=== PATIENT | female | born 1980 | race Caucasian/White ===

== ENCOUNTER 2017-03-22 10:06 | Emergency (ER) | payer BC, OTHER ==
[~2017-03-22] VITALS: Ht 172.7 cm; Wt 112.3 kg
[~2017-03-22 10:06] MED LIST: ALBU1AER9 INH; BIOT1CAP8 PO; BUPR150T7 PO; CALCTAB7 PO; CARB1CHW PO; CHOL1CAP57 PO; CYAN10005 PO; CYCL5TAB PO; GABA-113 PO; LEVOIUD PV; LORA-741 PO; NORT25CA PO; NYSCR30 EXT; NYST100098 TOP; OMEP20CA9 PO; PEDI-19 PO; RISP2TAB21 PO; TYLOTC500 PO
[2017-03-22 10:28] VITALS: TEMP 36.7; Ht 172.7 cm; Wt 112.3 kg
[2017-03-22] MEDS ORDERED: LISD30CA4 PO (11:25)
[2017-03-22] MEDS ORDERED: fentanyl patch (11:25)
[2017-03-22] MEDS ORDERED: LURA80TA PO (11:25)
[2017-03-22] MEDS ORDERED: OXYC-106 PO (11:25)
[2017-03-22] MEDS ORDERED: ONDANSETRON 8 MG/54 ML D5W IV STA (11:29)
[2017-03-22] MEDS ORDERED: FENTANYL CITRATE INJ 50 MCG/1 ML 2 ML VIAL IV STA (11:29)
[2017-03-22] MEDS ORDERED: SODIUM CHLORIDE 0.9% 1000ML 1,000 ML IV STA (11:29)
[2017-03-22] MEDS ORDERED: OPTIRAY 320 IV PRN (11:45)
[2017-03-22 11:46] LABS: BASO % 0.1 %; BASO ABS # 0.01 K/uL (0-0.2); COMPLETE YES; EOS % 0.7 %; HEMATOCRIT 44.5 % (37-47); IG% 0.1 %; LYMPH % 16.1 %; MEAN CELL VOLUME 88.8 fL (80-100); MEAN CORPUSCULAR HEMOGLOBIN 29.9 pg (25-34); MEAN CORPUSCULAR HGB CONC 33.7 g/dl (32-36); MEAN PLATELET VOLUME 10.7 fL (7.4-10.4); MONO % 7.2 %; NEUT % 75.8 %; PLATELET COUNT 213 K/uL (130-400); RED BLOOD COUNT 5.01 M/uL (4.2-5.4); WHITE BLOOD COUNT 7.47 K/uL (4.8-10.8)
[2017-03-22 12:06] LABS: CALCIUM 8.7 mg/dl (8.5-10.1); CREATININE 0.85 mg/dl (0.60-1.20); MAGNESIUM 2.4 mg/dl (1.8-2.4); POTASSIUM 4.2 mmol/L (3.5-5.1)
[2017-03-22 12:09] LABS: ALB/GLOB RATIO 1.2 (0.9-2)
[2017-03-22 12:10] LABS: PREG INTERNAL NEGATIVE QC NEG CLEAR BACKGROUND; PREG INTERNAL POSITIVE QC POS CONTROL LINE
[2017-03-22] MEDS ORDERED: HYDROmorphone INJ 0.5 MG/0.5 ML SYR IV STA (13:15)
[2017-03-22] MEDS ORDERED: ONDANSETRON INJ 2 MG/ML 2 ML VIAL IV STA (13:15)
--- NOTE | 2017-03-22 14:10 | DIAGNOSTIC IMAGING REPORT ---
ABDOMEN AND PELVIS CT WITH IV AND ORAL CONTRAST CT DOSE: 1519.54 mGy.cm HISTORY: Pain. Nausea. abd pain, nausea TECHNIQUE: Multiaxial CT images of the abdomen and pelvis were performed following the use of intravenous and oral contrast. COMPARISON STUDY: 06/29/2016 FINDINGS: lung bases are clear. Operative changes again consistent with a prior cholecystectomy as well as gastric bypass type procedure. This is unchanged from the prior study. Mild stable splenomegaly. Liver enhances uniformly. Kidneys negative for mass or hydronephrosis. Bowel pattern is nonobstructive throughout. Uterus is anteflexed. There is an intrauterine device located somewhat inferiorly within the lower uterine segment. Bladder is midline. There are no contained calcifications. There is no significant abdominal pelvic or inguinal adenopathy. IMPRESSION: 1. Stable operative changes consistent with a prior cholecystectomy and gastric bypass type procedure. 2. Mild stable splenomegaly. 3. Intrauterine device positioned somewhat lower than expected within the lower uterine segment. 4. Nonobstructive bowel pattern. 5. Study is otherwise negative. Electronically signed by: Aleksandr Serrano M.D. 03/22/2017 2:08 PM Dictated Date/Time: 03/22/2017 2:04 PM
[2017-03-22 14:12] LABS: URINE APPEARANCE CLOUDY (CLEAR); URINE BILIRUBIN NEG (NEG); URINE COLOR YELLOW; URINE EPITHELIAL CELL AUTO >30 /lpf (0-5); URINE NITRITE NEG (NEG); URINE PH 5.5 (4.5-7.5); URINE SPECIFIC GRAVITY 1.011 (1.000-1.030); UROBILINOGEN NEG (NEG); ZZUR CULT IF INDIC CLEAN CATCH YES
[2017-03-22 14:13] LABS: MANUAL MICROSCOPIC REQUIRED? NO; REVIEW REQ? YES
[2017-03-22] MEDS ORDERED: SUCRALFATE 1 GM/10 ML UDC PO STA (14:29)
[2017-03-22] MEDS ORDERED: DiphenhydrAMINE HCL 50 MG/ML VIAL IV STA (14:29)
[2017-03-22] MEDS ORDERED: METOCLOPRAMIDE HCL INJ 5 MG/ML 2 ML VIAL IV STA (14:29)
[2017-03-22] MEDS ORDERED: PANTOprazole INJ 40 MG in SYRINGE 0 ML IV ONE (14:30)
--- NOTE | 2017-03-22 18:02 | EMERGENCY ROOM VISIT NOTE ---
History Report prepared by Chapis: Naty Cruz Under the Supervision of: Dr. Jodi Veras D.O. First contact with patient: 11:11 Chief Complaint: ABDOMINAL PAIN Stated Complaint: BELLY PAIN AND NAUSEA-SENT BY GI DOCTOR History of Present Illness The patient is a 37 year old female who presents to the Emergency Room with complaints of waxing and waning abdominal pain starting yesterday. She had a gastric bypass 3 years ago. She first noticed the pain right after she ate a chocolate chip cookie yesterday. She has not had trouble with chocolate chip cookies before. This morning she drank some coffee and the pain worsened. The pain worsened again when she ate a protein bar. She also started having nausea and vomiting. She describes her pain as a cramping that comes in waves. The pain is worst in her mid upper abdomen, but present throughout her abdomen. She has been using 35 mc fentanyl patches which she has for jaw problems. She called her GI doctor who told her to go to the ED. She reports troubles with her bowel movements which is unusual for her. Her stools have been harder. She is also passing less gas. The pain does go through to her back on the right side. She reports feeling chills from having sunburn. She feels bloated. She had trouble with an ulcer right after her gastric bypass. She is on Prilosec 2 times a day. She usually drinks a lot of water. She started medications for ADHD 1 week ago which has been going well. She denies any changes in activity besides walking more. Source of History: patient Onset: yesterday Position: abdomen (upper) Quality: cramping Timing: waxes/wanes Modifying Factors (Worsening): eating, drinking Associated Symptoms: + nausea, + vomiting, + back pain Note: Pt reports harder stools, passing less gas, bloating. Review of Systems See HPI for pertinent positives & negatives. A total of 10 systems reviewed and were otherwise negative. Past Medical & Surgical Medical Problems: (1) Anxiety (2) Depression (3) Flank pain (4) GERD (gastroesophageal reflux disease) (5) H/O: hypothyroidism (6) Migraines (7) Obesity, Class II, BMI 35-39.9 Surgical Problems: (1) H/O esophagogastroduodenoscopy (2) History of dental surgery (3) History of gastric bypass (4) History of salpingectomy (5) S/P section (6) S/P removal of ovarian cyst (7) S/P tonsillectomy and adenoidectomy Family History Cancer Diabetes mellitus Heart disease Hypertension Obesity Social History Smoking Status: Former Smoker Alcohol Use: none Marital Status: Housing Status: lives with family Occupation Status: employed Current/Historical Medications Scheduled Biotin (Biotin), Unknown Dose PO DAILY Calcium Carbonate-Vitamin D W/ (Caltrate 600 Plus), 600 MG PO BID Carbonyl Iron (Ferretts Chewable Iron), 1 TAB PO UD Cholecalciferol (Vitamin D3), 1,000 UNITS PO BID Cyanocobalamin (Vitamin B-12), 1,000 MCG PO DAILY Gabapentin (Neurontin), 300 MG PO TID Levonorgestrel (Iud) (Mirena), 20 MCG PV CONTINOUS Lisdexamfetamine Dimesylate (Vyvanse), 1 CAP PO DAILY Lurasidone Hcl (Latuda), 120 MG PO HS Nortriptyline (Pamelor), 25 MG PO HS Omeprazole (Prilosec), 20 MG PO BID Pediatric Multiple Vitamins W/ (Childrens Chewable Vitami), 1 DOSE PO BID Scheduled PRN Acetaminophen (Tylenol), 1,000 MG PO Q6 PRN for headache Albuterol Sulfate (Proair Hfa), 2 PUFFS INH QID PRN for SOB/Wheezing Cyclobenzaprine Hcl (Flexeril), 5 MG PO TID PRN for Muscle Spasms Nystatin (Mycostatin), 1 APPLN TOP TID PRN for rash Nystatin (Nystatin Cream), 0 EXT BID PRN for rash Oxycodone/Acetaminophen 10MG/325MG (Percocet 10MG/325MG), 1 TAB PO TID PRN for Pain Miscellaneous Medications [fentanyl patch] [fentanyl patch], 25 MCG Allergies Coded Allergies: Sulfamethoxazole w/Trimethoprim (Verified Allergy, Mild, HIVES, ITCHY, ) Physical Exam Vital Signs Date Time Temp Pulse Resp B/P (MAP) Pulse Ox O2 Delivery O2 Flow Rate FiO2 03/22/17 18:20 64 18 132/89 100 03/22/17 16:17 61 16 112/73 100 Room Air 03/22/17 15:58 74 16 98 03/22/17 13:41 66 16 133/83 95 Room Air 03/22/17 12:14 75 16 97 Room Air 03/22/17 10:28 36.7 82 20 149/102 98 Room Air Physical Exam GENERAL: alert, uncomfortable appearing, well nourished, no distress, non-toxic EYE EXAM: normal conjunctiva, PERRL and EOM's grossly intact OROPHARYNX: no exudate, no erythema, lips, buccal mucosa, and tongue normal and mucous membranes are moist NECK: supple, no nuchal rigidity, no adenopathy, non-tender LUNGS: Clear to auscultation. Normal chest wall mechanics HEART: no murmurs, S1 normal and S2 normal ABDOMEN: epigastric tenderness, mild distension, normo-active bowel sounds, no masses, no rebound or guarding. BACK: Back is symmetrical on inspection and there is no deformity, no midline tenderness, no CVA tenderness. SKIN: sunburn UPPER EXTREMITIES: upper extremities are grossly normal. LOWER EXTREMITIES: No pitting edema. NEURO EXAM: Normal sensorium, cranial nerves II-XII grossly intact, normal speech, no gross weakness of arms, no gross weakness of legs. Medical Decision & Procedures ER Provider Diagnostic Interpretation: Radiology results have been interpreted by the radiologist and reviewed by me. ABDOMEN AND PELVIS CT WITH IV AND ORAL CONTRAST CT DOSE: 1519.54 mGy.cm HISTORY: Pain. Nausea. abd pain, nausea TECHNIQUE: Multiaxial CT images of the abdomen and pelvis were performed following the use of intravenous and oral contrast. COMPARISON STUDY: 06/29/2016 FINDINGS: lung bases are clear. Operative changes again consistent with a prior cholecystectomy as well as gastric bypass type procedure. This is unchanged from the prior study. Mild stable splenomegaly. Liver enhances uniformly. Kidneys negative for mass or hydronephrosis. Bowel pattern is nonobstructive throughout. Uterus is anteflexed. There is an intrauterine device located somewhat inferiorly within the lower uterine segment. Bladder is midline. There are no contained calcifications. There is no significant abdominal pelvic or inguinal adenopathy. IMPRESSION: 1. Stable operative changes consistent with a prior cholecystectomy and gastric bypass type procedure. 2. Mild stable splenomegaly. 3. Intrauterine device positioned somewhat lower than expected within the lower uterine segment. 4. Nonobstructive bowel pattern. 5. Study is otherwise negative. Electronically signed by: Aleksandr Serrano M.D. 03/22/2017 2:08 PM Dictated Date/Time: 03/22/2017 2:04 PM Laboratory Results 03/22/17 11:15 Red Blood Count 5.01, Mean Corpuscular Volume 88.8, Mean Corpuscular Hemoglobin 29.9, Mean Corpuscular Hemoglobin Concent 33.7, Mean Platelet Volume 10.7, Neutrophils (%) (Auto) 75.8, Lymphocytes (%) (Auto) 16.1, Monocytes (%) (Auto) 7.2, Eosinophils (%) (Auto) 0.7, Basophils (%) (Auto) 0.1, Neutrophils # (Auto) 5.66, Lymphocytes # (Auto) 1.20, Monocytes # (Auto) 0.54, Eosinophils # (Auto) 0.05, Basophils # (Auto) 0.01 03/22/17 11:15 Test 03/22/17 11:15 03/22/17 11:45 03/22/17 13:45 White Blood Count 7.47 K/uL (4.8-10.8) Red Blood Count 5.01 M/uL (4.2-5.4) Hemoglobin 15.0 g/dL (12.0-16.0) Hematocrit 44.5 % (37-47) Mean Corpuscular Volume 88.8 fL (80-100) Mean Corpuscular Hemoglobin 29.9 pg (25-34) Mean Corpuscular Hemoglobin Concent 33.7 g/dl (32-36) Platelet Count 213 K/uL (130-400) Mean Platelet Volume 10.7 fL (7.4-10.4) Neutrophils (%) (Auto) 75.8 % Lymphocytes (%) (Auto) 16.1 % Monocytes (%) (Auto) 7.2 % Eosinophils (%) (Auto) 0.7 % Basophils (%) (Auto) 0.1 % Neutrophils # (Auto) 5.66 K/uL (1.4-6.5) Lymphocytes # (Auto) 1.20 K/uL (1.2-3.4) Monocytes # (Auto) 0.54 K/uL (0.11-0.59) Eosinophils # (Auto) 0.05 K/uL (0-0.5) Basophils # (Auto) 0.01 K/uL (0-0.2) RDW Standard Deviation 40.9 fL (36.4-46.3) RDW Coefficient of Variation 12.7 % (11.5-14.5) Immature Granulocyte % (Auto) 0.1 % Immature Granulocyte # (Auto) 0.01 K/uL (0.00-0.02) Anion Gap 8.0 mmol/L (3-11) Est Creatinine Clear Calc Drug Dose 121.4 ml/min Estimated GFR () 102.9 Estimated GFR (Non- 88.8 BUN/Creatinine Ratio 16.0 (10-20) Calcium Level 8.7 mg/dl (8.5-10.1) Magnesium Level 2.4 mg/dl (1.8-2.4) Total Bilirubin 0.7 mg/dl (0.2-1) Aspartate Amino Transf (AST/SGOT) 15 U/L (15-37) Alanine Aminotransferase (ALT/SGPT) 24 U/L (12-78) Alkaline Phosphatase 72 U/L (45-117) Total Protein 7.6 gm/dl (6.4-8.2) Albumin 4.2 gm/dl (3.4-5.0) Globulin 3.4 gm/dl (2.5-4.0) Albumin/Globulin Ratio 1.2 (0.9-2) Lipase 207 U/L (73-393) Human Chorionic Gonadotropin, Qual NEG (NEG) Lactic Acid Level 0.6 mmol/L (0.4-2.0) Urine Color YELLOW Urine Appearance CLOUDY (CLEAR) Urine pH 5.5 (4.5-7.5) Urine Specific [place] 1.011 (1.000-1.030) Urine Protein NEG (NEG) Urine Glucose (UA) NEG (NEG) Urine Ketones NEG (NEG) Urine Occult Blood NEG (NEG) Urine Nitrite NEG (NEG) Urine Bilirubin NEG (NEG) Urine Urobilinogen NEG (NEG) Urine Leukocyte Esterase SMALL (NEG) Urine WBC (Auto) 5-10 /hpf (0-5) Urine RBC (Auto) 0-4 /hpf (0-4) Urine Hyaline Casts (Auto) 1-5 /lpf (0-5) Urine Epithelial Cells (Auto) >30 /lpf (0-5) Urine Bacteria (Auto) 1+ (NEG) Date/Time Source Procedure Growth Status 03/22/17 13:45 Urine , Clean Catch Urine Culture - Final THREE TYPES OF ORGANSIMS PRESENT, ALL... Complete Laboratory results per my review. Medications Administered Medications (Trade) Dose Ordered Sig/[place] Route Start Time Stop Time Status Last Admin Dose Admin Sodium Chloride 1,000 ml @ 999 mls/hr Q1H1M STAT IV 03/22/17 11:29 03/22/17 12:29 DC 03/22/17 11:40 999 MLS/HR Fentanyl Citrate (Fentanyl Inj) 100 mcg NOW STAT IV 03/22/17 11:29 03/22/17 11:32 DC 03/22/17 11:38 100 MCG Ondansetron HCl (Zofran 8mg Iv) 8 mg NOW STAT IV 03/22/17 11:29 03/22/17 11:32 DC 03/22/17 11:37 8 MG Hydromorphone HCl (Dilaudid Inj) 0.5 mg NOW STAT IV 03/22/17 13:15 03/22/17 13:16 DC 03/22/17 13:35 0.5 MG Ondansetron HCl (Zofran Inj) 4 mg NOW STAT IV 03/22/17 13:15 03/22/17 13:16 DC 03/22/17 13:35 4 MG Pantoprazole Sodium 40 mg/ Syringe 10 ml @ 5 mls/min NOW ONCE IV 03/22/17 14:30 03/22/17 14:31 DC 03/22/17 14:49 5 MLS/MIN Sucralfate (Carafate Susp) 1 gm NOW STAT PO 03/22/17 14:29 03/22/17 14:31 DC 03/22/17 14:48 1 GM Metoclopramide HCl (Reglan Inj) 10 mg NOW STAT IV 03/22/17 14:29 03/22/17 14:31 DC 03/22/17 14:50 10 MG Diphenhydramine HCl (Benadryl Inj) 12.5 mg NOW STAT IV 03/22/17 14:29 03/22/17 14:31 DC 03/22/17 14:49 12.5 MG ED Course 1119: The patient was evaluated in room C10. A complete history and physical exam was performed. 1129: Zofran 8 mg IV, Fentanyl Citrate 100 mcg IV, NSS 1000 ml @ 999 mls/hr IV. 1313: I reevaluated the patient. She still has nausea and pain. I updated her on the lab results. 1315: Zofran Inj 4 mg IV, Dilaudid Inj 0.5 mg IV. 1422: I reevaluated the patient. She is still having pain. 1429: Benadryl Inj 12.5 mg IV, Reglan Inj 10 mg IV, Sucralfate 1 gm PO. 1430: Pantoprazole Sodium 40 mg/Syringe 10 ml @ 5 mls/min IV. 1737: I reevaluated the patient. She is feeling better. She has tolerated PO. I discussed the results and treatment plan. She verbalized understanding and agreement. I discussed admission vs discharge and she would prefer discharge and follow up with GI as an outpatient. She was discharged home. Medical Decision Differential diagnosis: Etiologies such as appendicitis, diverticulitis, PUD, biliary pathology, UTI, pancreatitis, obstruction, mesenteric ischemia, aortic pathology, infections, Gi bleed, inflammatory bowel disease, renal colic, as well as others were entertained. Medication Reconciliation: I attest that I have personally reviewed the patient' s current medication list. Blood pressure screening: Patient was found to have an elevated blood pressure and was referred to their primary doctor for recheck and further treatment. Pt with persistent pain despite meds but felt improved. No acute pathology noted on CT. Pt with hx of PUD s/p gastric bypass but taking meds daily and states she is compliant. Labs otw reassuring. Offered pt admission for pain control. She would like to try and go home and f/u with GI and her surgeon as an outpt. Discussed hydration, light/clear diet, sx to watch/return for, use of her meds, all questions answered at bedside, she verbalized understanding and was agreeable with plan. Impression Primary Impression: Abdominal pain Additional Impressions: Nausea History of gastric bypass Scribe Attestation The scribe's documentation has been prepared under my direction and personally reviewed by me in its entirety. I confirm that the note above accurately reflects all work, treatment, procedures, and medical decision making performed by me. Departure Information Dispostion Home / Self-Care Referrals No Doctor, Assigned (PCP) Patient Instructions My [facility] Additional Instructions Please call and follow-up with your GI doctor about your stomach pain. Please continue your regular medications including your stomach meds as prescribed. Please sip clear liquids at regular intervals to stay well hydrated. Please eat a bland/light diet as tolerated. If you have any worsening pain, develop fevers or chills, vomiting, noticed black or bloody stools, or you've any other new or concerning symptoms, please return the emergency room immediately. Problem Qualifiers Primary Impression: Abdominal pain Abdominal location: epigastric Qualified Codes: R10.13 - Epigastric pain
[2017-03-22 18:20] VITALS: BP 132/89; PULSE 64; O2SAT 100
== END 2017-03-22 18:20 | disposition home or self-care (01) ==
LOC: C.EDB 10:08 → C.EDC 18:20
DX: R10.13 Epigastric pain (principal); R11.0 Nausea; Z98.84 Bariatric surgery status; F41.9 Anxiety disorder, unspecified; F32.9 Major depressive disorder, single episode, unspecified; K21.9 Gastro-esophageal reflux disease without esophagitis; E03.9 Hypothyroidism, unspecified; G43.909 Migraine, unspecified, not intractable, without status migrainosus; E66.9 Obesity, unspecified; Z80.9 Family history of malignant neoplasm, unspecified; Z83.3 Family history of diabetes mellitus; Z82.49 Family history of ischemic heart disease and other diseases of the circulatory system; Z87.891 Personal history of nicotine dependence; Z79.899 Other long term (current) drug therapy

== ENCOUNTER → 2017-07-26 | Outpatient (CLI) | payer BC ==
[~2017-07-26] MED LIST changes: -BUPR150T7 PO; +LISD30CA4 PO; -LORA-741 PO; +LURA80TA PO; +OXYC-106 PO; -RISP2TAB21 PO; +fentanyl patch
--- NOTE | 2017-07-26 08:26 | DIAGNOSTIC IMAGING REPORT ---
GI SERIES W/AIR ROUTINE CLINICAL HISTORY: AB PAINpain COMPARISON STUDY: None FLUOROSCOPY TIME: 1.5 minutes. FINDINGS: Patient initiated swallowing function well. Esophagus normal in course and caliber. There is moderate gastroesophageal reflux. Patient is status post prior gastroplasty. Residual radiopaque densities are present consistent with oral medication ingestion. IMPRESSION: 1. Postoperative changes noted. 2. No evidence for obstruction. 3. Moderate gastroesophageal reflux. The above report was generated using voice recognition software. It may contain grammatical, syntax or spelling errors. Electronically signed by: Aleksandr Serrano M.D. 07/26/2017 8:25 AM Dictated Date/Time: 07/26/2017 8:24 AM
== END | disposition home or self-care (01) ==
LOC: C.RAD 07:31
PROVIDERS: ATTEND Surgery
DX: R10.13 Epigastric pain (principal); K21.9 Gastro-esophageal reflux disease without esophagitis